=== PATIENT | female | born 1955 | race Caucasian/White ===

== ENCOUNTER 2023-06-12 08:52 | Outpatient (CLI) | payer MEDICARE, BC | END 2023-06-12 08:53 | disposition home or self-care (01) | LOC: CSHWCC 08:52 | PROVIDERS: ATTEND Nurse Practitioner Family | DX: S81.001D Unspecified open wound, right knee, subsequent encounter (principal) | CPT/HCPCS: 97139; 97597; 97607; G0463; 99203 ==

== ENCOUNTER 2023-06-19 11:12 | Outpatient (CLI) | payer MEDICARE, BC | END 2023-06-19 11:13 | disposition home or self-care (01) | LOC: CSHWCC 11:12 | PROVIDERS: ATTEND Nurse Practitioner Family | DX: S81.001D Unspecified open wound, right knee, subsequent encounter (principal) | CPT/HCPCS: 11042; 97607 ==

== ENCOUNTER 2023-06-26 13:05 | Outpatient (CLI) | payer MEDICARE, BC | END 2023-06-26 13:06 | disposition home or self-care (01) | LOC: CSHWCC 13:05 | PROVIDERS: ATTEND Nurse Practitioner Family | DX: S81.001D Unspecified open wound, right knee, subsequent encounter (principal) | CPT/HCPCS: 97602 ==

== ENCOUNTER 2023-07-10 14:26 | Outpatient (CLI) | payer MEDICARE, BC | END 2023-07-10 14:27 | disposition home or self-care (01) | LOC: CSHWCC 14:26 | PROVIDERS: ATTEND Nurse Practitioner Family | DX: S81.001D Unspecified open wound, right knee, subsequent encounter (principal) | CPT/HCPCS: 97139; G0463; 99211 ==